=== PATIENT | female | born 1940 | race Asian ===

== ENCOUNTER 2017-06-26 13:44 | Emergency (ER) | payer OTHER ==
[~2017-06-26] VITALS: Ht 157.5 cm; Wt 70.5 kg
[~2017-06-26 13:44] MED LIST: CALC1TAB15 PO; GLUC100019 PO; OMEG1CAP11 PO; SIMV-260 PO
[2017-06-26 13:45] VITALS: BP 164/107
== END 2017-06-26 14:15 | disposition left against medical advice (07) ==
LOC: EMS 13:45
DX: H57.11 Ocular pain, right eye (principal); L56.8 Other specified acute skin changes due to ultraviolet radiation; E78.00 Pure hypercholesterolemia, unspecified; Z53.21 Procedure and treatment not carried out due to patient leaving prior to being seen by health care provider

== ENCOUNTER 2023-04-29 16:33 | Emergency (ER) | payer MEDICARE, OTHER ==
[~2023-04-29] VITALS: Ht 152.4 cm; Wt 65.9 kg
[2023-04-29 16:44] LABS: COVID AG,FIA SOURCE NASAL SWAB
[2023-04-29 17:08] LABS: INFLUENZA TYPE A NEGATIVE FOR TYPE A (NEGATIVE); INFLUENZA TYPE B NEGATIVE FOR TYPE B (NEGATIVE); SARS-COV2 (COVID) ANTIGEN,FIA Negative (Negative)
[2023-04-29 18:40] VITALS: BP 142/70; PULSE 71; RESP 18; TEMP 99
== END 2023-04-29 18:46 | disposition home or self-care (01) ==
LOC: EMS 16:34
DX: J40 Bronchitis, not specified as acute or chronic (principal); E78.00 Pure hypercholesterolemia, unspecified; Z88.8 Allergy status to other drugs, medicaments and biological substances; Z20.822 Contact with and (suspected) exposure to COVID-19
CPT/HCPCS: 87804; 99283

== ENCOUNTER 2024-10-02 13:32 | Emergency (ER) | payer MEDICARE ==
[~2024-10-02] VITALS: Ht 154.9 cm; Wt 65.9 kg
[~2024-10-02 13:32] MED LIST changes: -OMEG1CAP11 PO
[2024-10-02 13:54] VITALS: BP 132/71; PULSE 69; RESP 19; TEMP 98.1; O2SAT 96
== END 2024-10-02 15:00 | disposition left against medical advice (07) ==
LOC: EMS 13:47
DX: R06.02 Shortness of breath (principal); Z53.21 Procedure and treatment not carried out due to patient leaving prior to being seen by health care provider